=== PATIENT | male | born 1990 | race Caucasian/White ===

== ENCOUNTER 2019-08-28 21:12 | Emergency (ER) | payer SELFPAY ==
[2019-08-28 21:19] VITALS: BP 173/98
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
[2019-08-30 07:37] LABS: HEPATITS B SURFACE ANTIGEN Negative (Negative)
[2019-08-31 07:03] LABS: HEPATITIS C VIRUS ANTIBODY <0.1 s/co ratio (0.0-0.9)
== END 2019-08-28 22:41 | disposition home or self-care (01) ==
LOC: ER 21:12
DX: Z01.89 Encounter for other specified special examinations (principal); Z20.6 Contact with and (suspected) exposure to human immunodeficiency virus [HIV]
CPT/HCPCS: 36415; 80074; 86701; 99283